=== PATIENT | male | born 1945 | race Caucasian/White ===

== ENCOUNTER 2019-01-13 01:18 | Emergency (ER) | payer MEDICARE, BC, SELFPAY ==
[2019-01-13 01:26] VITALS: BP 129/80; PULSE 82; RESP 26; TEMP 36.5; O2SAT 97
--- NOTE | 2019-01-13 01:35 | DI.CT_ITS ---
SYMPTOM/DIAGNOSIS: HX OF KIDNEY STONES, FLANK PAIN. R/O STONE ABDOMINAL AND PELVIC CT: 01/13 CT examination of the abdomen and pelvis was performed without contrast administration. Images obtained through the lung bases are unremarkable. The visualized portions of the liver, spleen and pancreas appear normal. Gallbladder and bile ducts are CT normal. Abdominal aorta is of normal diameter. There is probable prior ventral hernia surgery. There is small fat containing umbilical hernia. No gross abdominal or pelvic adenopathy. Adrenals are unremarkable. There are very large bilateral renal cysts, largest on the right measuring up to about 9 cm in diameter and largest on the left measuring up to about 13 cm in diameter. There are small bilateral nonobstructing renal calculi. No hydronephrosis. No ureteral lithiasis. Urinary bladder contains multiple stones and is collapsed. No evidence of appendicitis or diverticulitis. No evidence of bowel obstruction. Note is made of nonspecific small lytic lesions in both iliac bones. The findings are nonspecific but a process such as multiple myeloma could not be excluded. Please correlate clinically. If clinically appropriate additional evaluation with pelvic MRI could be obtained to evaluate these lesions. CONCLUSION: 1. Very large bilateral renal cysts 2. Bilateral nonobstructing renal calculi 3. Urinary bladder calculi 4. Question fo lytic lesions of iliac bones bilaterally, pelvic MRI suggested to exclude multiple myeloma and clinical correlation is requested.
--- NOTE | 2019-01-13 01:47 | W.ED.GENAD ---
Discharge Plan Disposition Patient Disposition: HOME Condition: Good Discharge Details Chief Complaint: Urinary Clinical Impression: Acute urinary retention Primary Care Provider: [facility] Provider: Bartolome De La Rosa Home Meds and New Rx's Prescriptions: No Action tamsulosin 0.4 mg Capsule 4 mg PO DAILY RF: 0 Discharge Instructions Instructions: Urinary Retention in Men (ED) Additional Instructions: Your urinary retention has been resolved with the draining of your bladder. Do not miss any doses of your Flomax. Please follow-up promptly this week with your urologist at [facility]. If you notice any worsening of your symptoms, or any new symptoms such as vomiting, diarrhea, fever, chills, shortness of breath, chest pain, numbness, weakness, or fainting , please return immediately to the emergency department for reevaluation.As always, it was a pleasure participating in your medical care today. Medical Decision Making This is a pleasant 73-year-old male with a past medical history of bladder stones, kidney stones, and prostatic hypertrophy. He presents today for complaint of suprapubic pain, and inability to urinate since 9 PM. He states that he has had similar symptoms to this in the past when he has had both prostate issues and kidney stones. He denies any fever chills hematuria. Exam demonstrates suprapubic tenderness. No significant upper abdominal tenderness. Genital exam is otherwise benign with nontender testicles. Differential is highest for urinary retention secondary to prostatic hypertrophy versus stone. Bedside ultrasound does show notable retention. We will place a Connolly catheter, perform laboratory work-up, get a CT scan to evaluate for any potential stone etiology is the causative agent. 3 AM The patient had 1 L of urine noted in the bladder, straight cath was placed and the patient had complete release of the urine. Patient had complete resolution of his symptoms after this. Laboratory work-up demonstrates normal renal, normal hemoglobin. No white count. Urinalysis shows no evidence of urinary tract infection. CT scan per radiology shows no evidence of acute process however there is a notable renal cyst up to 13.6 cm. No obstructing calculus. No evidence of urinary obstruction otherwise. Patient continues to feel very well. Unfortunately right now [facility] is in a downtime and we are unable to access any of their CT images for comparison. He states he does know that he has a history of cysts in the past. At this time he is requesting discharge which I feel is reasonable. Respecting his wishes patient will be to discharged home with recommendation for prompt follow-up with his urologist at [facility]. We discussed red flags for which to return. I have extensively reviewed the treatment plan and discharge instructions with the patient and their family. I have addressed all patient concerns at this time. The patient and family was made aware of what symptoms to monitor for that would warrant a return to the emergency department. Discussed the plan with the patient and family, they demonstrate verbal understanding and agreement with our assessment and plan at this time. FINDINGS: Liver: Normal. No mass. Gallbladder and bile ducts: Normal. No calcified stones. No ductal dilation. Pancreas: Normal. No ductal dilation. Spleen: Normal. No splenomegaly. Adrenals: Normal. No mass. Kidneys and ureters: Renal cysts up to 13.6 cm. Nonobstructing renal calculi. No obstructing urinary calculus or hydronephrosis. Stomach and bowel: Colonic diverticula. Appendix: No evidence of appendicitis. Intraperitoneal space: Normal. No free air. No significant fluid collection. Vasculature: Normal. No abdominal aortic aneurysm. Lymph nodes: Normal. No enlarged lymph nodes. Bladder: Urinary calculi in dependent portion of the collapsed urinary bladder. Reproductive: Prostate hypertrophy. Bones/joints: No acute fracture. No dislocation. Soft tissues: Tiny fat-containing umbilical hernia. IMPRESSION: No acute finding. Thank you for allowing us to participate in the care of your patient. Dictated and Authenticated by: Be Roche MD HPI General Date/Time Provider Initiated Documentation: 01/13/19 01:34. HPI Narrative: This is a 73-year-old male with a past medical history of prostatic hypertrophy, bladder stones and kidney stones who presents today with difficulty urinating, suprapubic pain, and mild abdominal pain. He states that he has had similar symptoms in the past that he has had both prostate issues as well as kidney stone issues. He denies any numbness tingling weakness nausea vomiting or diarrhea. He denies any other complaints at this time. He has not been able to urinate since 9 PM this evening. He does see urology at [facility] on a regular basis. No other modifying factors. Related Data Home Medications Medication Instructions Recorded Confirmed tamsulosin 4 mg PO DAILY 01/13/19 01/13/19 Allergies Allergy/AdvReac Type Severity Reaction Status Date / Time No Known Allergies Allergy Unverified 01/13/19 01:35 General Stated Complaint: Urinary WARREN: 3 Review of Systems Review of Systems All systems reviewed & are unremarkable except as noted in HPI and below [facility] Medical History (Updated 01/13/19 @ 01:35 by Salima Rodriguez) Bladder stones (Acute) Social History Smoking/Tobacco Use Status: Never Alcohol Intake: current Alcohol Intake frequency: 0-2 drinks per day Drug use: Never Substance use type: does not use Do you feel safe at home: Yes Do you feel safe in your relationship?: Yes Exam Narrative Exam Narrative: 1.Const: Well-nourished, Well-developed, appearing stated age 2.Eyes: PERRL, no conjunctival injection, and symmetrical lids. 3.ENT: Atraumatic external nose and ears. Moist MM. Neck: Symmetric, trachea midline, No thyromegaly. 4.CVS: +S1/S2, No murmurs or gallops. Peripheral pulses 2+ and equal in all extremities. Brisk capillary refill in all extremities. 5.RESP: Unlabored respiratory effort. Clear to auscultation bilaterally. No wheezes rales or rhonchi 6.GI: Soft, Nontender/Nondistended, No hepatosplenomegaly. No guarding or rebound. Notable distention of the suprapubic area. Mild tenderness in this area. Genital exam demonstrates nontender testicles, nontender penis. No urethral discharge. Normal cremasteric reflex bilaterally. 7.MSK: Normocephalic/Atraumatic, Extremities w/o deformity or ttp No cyanosis or clubbing, Normal movement of all extremities 8.Skin: Warm, Dry. No rashes or lesions. 9.Neuro: hearing therapy director II-XII grossly intact. Sensation grossly intact, no focal neurologic deficits. 10.Psych: (AAO) x3. Appropriate mood and affect Course Vital Signs Temperature 36.5 C 01/13/19 01:26 Pulse 82 01/13/19 01:26 Respiratory Rate 26 H 01/13/19 01:26 Blood Pressure 129/80 01/13/19 01:26 Pulse Oximetry 97 01/13/19 01:26 Temperature 36.5 C 01/13/19 01:26 Temperature Source Skin 01/13/19 01:26 Pulse 82 01/13/19 01:26 Respiratory Rate 26 H 01/13/19 01:26 Respiratory Effort Non-Labored 01/13/19 01:33 Blood Pressure 129/80 01/13/19 01:26 Pulse Oximetry 97 01/13/19 01:26 Oxygen Delivery Method Room Air 01/13/19 01:26 Oxygen Flow Rate 0 01/13/19 01:26 Pain Level 10 01/13/19 01:26
[2019-01-13] MEDS: diazePAM 5 MG TAB PO (01:50)
[2019-01-13 02:04] LABS: Abs Immature Grans 0.01 k/cumm (0.0-0.09); Absolute Eosinophil Count 0.08 k/cumm (0.0-0.7); Absolute Monocyte Count 0.46 k/cumm (0.11-0.7); Absolute Neutrophil Count 3.68 k/cumm (1.2-6.7); Eosinophils % 1.4; HCT 47.4 % (40.0-50.0); HGB 15.7 g/dL (13.5-17.5); Immature Grans % 0.2; Lymphocytes % 24.9; Mean Corp. HGB Concentration 33.1 g/dL (32.0-36.0); Mean Corpuscular Hemoglobin 29.5 pg (27.0-33.0); Mean Corpuscular Volume 88.9 fL (80-95); Mean Platelet Volume 9.4 fL (8.0-11.0); Monocytes % 8.2; Neutrophils % 65.3; Platelet Count 172 x1000/uL (130-400); RBC 5.33 m/cumm (4.50-6.00); RBC Distribution Width 12.8 % (11.8-14.1); White Blood Cell Count 5.63 k/cumm (4.4-10.8)
[2019-01-13 02:25] LABS: Bilirubin Negative (Negative); Blood Trace-intact (Negative); Clarity Clear (Clear); Glucose Negative (Negative); Ketones Negative (Negative); Leukocyte Esterase Negative (Negative); Nitrite Negative (Negative); Urobilinogen 0.2 EU/dL (Up TO 0.2); pH 5.5 (5-8)
[2019-01-13 02:25] LABS: ALT 12 U/L (12-78); AST 11 U/L (15-37); Albumin 3.7 g/dL (3.4-5.0); Alkaline Phosphatase 85 U/L (46-116); Anion Gap 9.6 mmol/L (3-11); BUN 27 mg/dL (7-18); Bilirubin, Total 0.4 mg/dL (0.2-1.0); CO2 26.4 mmol/L (21.0-32.0); CREATININE 0.91 mg/dL (0.70-1.30); Chloride 103 mmol/L (98-107); Glucose 99 mg/dL (70-100); Potassium 4.2 mmol/L (3.5-5.1); Sodium 139 mmol/L (136-145); Total Protein 7.5 g/dL (6.4-8.2)
[2019-01-13 02:29] LABS: Bacteria Negative HPF (Negative); C & S Indicated? No; Casts Negative LPF (Negative); Crystals Negative HPF (Negative); Epithelial Cells Negative HPF (Negative); Mucus Negative (Negative); RBC 0-2 (0-2); WBC 0-2 HPF (0-5)
--- NOTE | 2019-01-13 03:02 | DI.VRAD_ITS ---
EXAM: CT Abdomen and Pelvis Without Contrast EXAM DATE/TIME: 01/13/2019 1:36 AM CLINICAL HISTORY: 73 years old, male; Abdominal pain; Other: Supra-pubic; Patient HX: HX of kidney stones; Additional info: R/O stone TECHNIQUE: Imaging protocol: Axial computed tomography images of the abdomen and pelvis without contrast. Coronal and sagittal reformatted images were created and reviewed. COMPARISON: No relevant prior studies available. FINDINGS: Liver: Normal. No mass. Gallbladder and bile ducts: Normal. No calcified stones. No ductal dilation. Pancreas: Normal. No ductal dilation. Spleen: Normal. No splenomegaly. Adrenals: Normal. No mass. Kidneys and ureters: Renal cysts up to 13.6 cm. Nonobstructing renal calculi. No obstructing urinary calculus or hydronephrosis. Stomach and bowel: Colonic diverticula. Appendix: No evidence of appendicitis. Intraperitoneal space: Normal. No free air. No significant fluid collection. Vasculature: Normal. No abdominal aortic aneurysm. Lymph nodes: Normal. No enlarged lymph nodes. Bladder: Urinary calculi in dependent portion of the collapsed urinary bladder. Reproductive: Prostate hypertrophy. Bones/joints: No acute fracture. No dislocation. Soft tissues: Tiny fat-containing umbilical hernia. IMPRESSION: No acute finding. Dictated and Authenticated by: Be Roche MD. Ordering:ARMINDA Mancuso MD
[2019-01-13 03:10] VITALS: BP 124/72; PULSE 67; RESP 16; O2SAT 97
== END 2019-01-13 03:14 | disposition home or self-care (01) ==
PROVIDERS: Emergency Provider Student in an Organized Health Care Education/Training Program
DX: N41.9 Inflammatory disease of prostate, unspecified (principal); R33.8 Other retention of urine; N28.1 Cyst of kidney, acquired; Z87.442 Personal history of urinary calculi
CPT/HCPCS: 36415; 51701; 80053; 99284; 74176; 81003; 81015; 85025; 99285

== ENCOUNTER 2019-01-14 07:32 | Emergency (ER) | payer MEDICARE, BC, SELFPAY ==
[2019-01-14] VITALS (20 sets, daily range): BP systolic 106–135; BP diastolic 59–80; PULSE 65–80; RESP 15; TEMP 36.7; O2SAT 97–100
--- NOTE | 2019-01-14 07:53 | ED.GENADUL_ITS ---
Discharge Plan Disposition Patient Disposition: HOME Condition: Stable Discharge Details Chief Complaint: Urinary Clinical Impression: Urinary retention Primary Care Provider: [facility]Local ED Provider: Nickie Tony Home Meds and New Rx's Prescriptions: Continued tamsulosin 0.4 mg Capsule 8 mg PO DAILY RF: 0 No Action bisacodyl 5 mg Tablet 10 mg PO ONCE RF: 0 naproxen sodium [Aleve] 220 mg Capsule 440 mg PO BID PRNRF: 0 diazepam [Valium] 2 mg tablet 2 mg PO ONCE PRN (Reason: spasms) Qty: 10 RF: 0 Discharge Instructions Instructions: Urinary Retention in Men (ED), Connolly Catheter Placement and Care (ED), Urinary Leg Bag (GEN) Additional Instructions: Please return to the emergency department if you develop any new or worsening symptoms or if you become otherwise concerned. It is extremely important that you call as soon as possible to make an appointment to be seen by both your urologist and also by your primary care doctor. Discharge Data Discharge Date/Time-TO BE ENTERED AT DEPARTURE: 01/14/19 11:10 Medical Decision Making Braydon Anders is a 73-year-old man with history of BPH who presented to the emergency department with urinary retention after being seen here 2 days ago for same, straight catheter placed at that time with greater than 1000 cc urine output. Patient is very well-appearing and nontoxic on exam. Mild suprapubic tenderness without peritoneal signs. CT performed at prior visit shows enlarged prostate, renal cysts. Renal cysts present on prior CT. Exam/history is not consistent with acute emergent intraperitoneal process, acute aortic pathology, acute emergent neurologic etiology. Concern for likely urinary retention secondary to enlarged prostate, possible UTI. Plan for Connolly catheter placement, if urine output greater than 500 cc will send patient home with indwelling Connolly, urology consult, UA. Patient with significant anxiety secondary to Connolly placement, received Valium at prior visit. Will give p.o. Valium 5 mg. Greater than 700 cc of urine output with Connolly placement. Plan to send patient home with Connolly in place. Patient's urologist is Dr. Sanchez at [facility]. I called transfer center at [facility] to discuss patient with urology on-call. UA shows no UTI. Discussed Pt with Dr. Tellez of urology, who recommended continue indwelling Connolly, continue Flomax, will schedule patient for voiding trial as outpatient. No further interventions recommended at this time. I had a lengthy discussion with the patient regarding return to emergency department precautions, home car e, importance of outpatient follow-up with PCP and also with urology. Patient verbalized understanding of the plan was amenable. All questions were answered. Patient was discharged home with clear plan for outpatient follow-up. Medical Records Medical records reviewed: Yes I reviewed the patient's medical records. Lab Data Lab results reviewed: Yes I reviewed the patient's lab results. HPI General Mode of arrival: ambulatory . Date/Time Provider Initiated Documentation: 01/14/19 07:53 . Limitations to Documentation: no limitations . Information obtained by: patient, RN notes reviewed and old records reviewed . HPI Narrative: Braydon Anders is a 73 y/o man with history of BPH presenting to the emergency department with urinary retention. Patient reports that he was seen here 2 days ago for same. At that time, patient had straight catheter placed, approximately 1000 cc of urine was put out immediately. Patient was discharged home at that time without catheter in place. Patient reports that since discharge to the emergency department he has had gradually worsening difficulty with urination, and states that he has now not urinated since yesterday. He reports mild lower abdominal pain consistent with symptoms he presented with at his prior visit. He denies dysuria. He denies any other pain, fevers, vomiting, diarrhea, constipation, shortness of breath, cough, numbness, weakness. Patient reports he has been eating and drinking as usual. No recent illness. Has not had to have indwelling Connolly catheter for this in the past. Patient has been taking Flomax. Related Data Home Medications Medication Instructions Recorded Confirmed tamsulosin 8 mg PO DAILY 01/13/19 01/16/19 bisacodyl 10 mg PO ONCE 01/16/19 01/16/19 diazepam [Valium] 2 mg PO ONCE PRN #10 tab 01/16/19 naproxen sodium [Aleve] 440 mg PO BID PRN 01/16/19 01/16/19 Previous Rx's Medication Instructions Recorded diazepam [Valium] 2 mg PO ONCE PRN #10 tab 01/16/19 Allergies Allergy/AdvReac Type Severity Reaction Status Date / Time No Known Allergies Allergy Unverified 01/16/19 15:32 General Stated Complaint: Urinary WARREN: 3 Review of Systems Review of Systems Constitutional: denies fevers Eyes: denies eye pain ENT: denies facial pain, dental pain, sore throat Cardiovascular: denies chest pain Respiratory: denies SOB, cough GI: denies abdominal pain, vomiting, diarrhea : denies flank pain, dysuria, urinary incontinence, reports difficulty with urination MSK: denies back pain, neck pain, arthralgias, myalgias Skin: denies rash Neuro: denies headaches, numbness, weakness [facility] Medical History Bladder stones (Acute) Social History Smoking/Tobacco Use Status: Never Alcohol Intake: current Alcohol Intake frequency: 0-2 drinks per day Drug use: Never Substance use type: does not use Do you feel safe at home: Yes Do you feel safe in your relationship?: Yes Exam Narrative Exam Narrative: Constitutional: well and [id number], pleasant, conversing normally HENT: head atraumatic/normocephalic/normal inspection, mucous membranes moist Eyes: conjunctiva normal, sclera normal, pupils 3mm b/l Neck: no stridor, normal ROM, trachea midline Resp: normal work of breathing, LCTAB Cardio: normal rate, normal rhythm, no murmur appreciated GI: abdomen soft, mild suprapubic tenderness, no rebound, no guarding, no McBurney's point tenderness to palpation, non-distended Skin: warm, dry, normal color, no rash Neuro: alert, not altered, grossly non-focal, normal tone Ext: no edema Psych: normal mood, normal affect, normal behavior Course Vital Signs Temperature 36.7 C 01/14/19 07:37 Pulse 80 01/14/19 07:37 Respiratory Rate 15 01/14/19 07:37 Blood Pressure 135/77 01/14/19 07:37 Pulse Oximetry 99 01/14/19 07:37 Temperature 36.7 C 01/14/19 07:37 Temperature Source Temporal Artery Scan 01/14/19 07:37 Pulse 80 01/14/19 07:37 Respiratory Rate 15 01/14/19 07:37 Respiratory Effort Non-Labored 01/14/19 07:41 Blood Pressure 135/77 01/14/19 07:37 Blood Pressure Position Standing 01/14/19 07:37 Pulse Oximetry 99 01/14/19 07:37 Oxygen Delivery Method Room Air 01/14/19 07:37 Oxygen Flow Rate 0 01/14/19 07:37 Pain Level 9 01/14/19 07:37
[2019-01-14] MEDS: diazePAM 5 MG TAB PO (08:00)
--- NOTE | 2019-01-14 08:56 | NUR.NOTE ---
Nursing Note: Additional RN at bedside to attempt 3rd IV
[2019-01-14 09:03] LABS: Bilirubin Negative (Negative); Blood Trace-intact (Negative); Clarity Clear (Clear); Glucose Negative (Negative); Ketones Negative (Negative); Leukocyte Esterase Negative (Negative); Nitrite Negative (Negative); Specific Gravity 1.015 (1.005-1.025); Urobilinogen 0.2 EU/dL (Up TO 0.2); pH 5.5 (5-8)
[2019-01-14 09:15] LABS: Bacteria Few HPF (Negative); Crystals Negative HPF (Negative); Epithelial Cells Few HPF (Negative); Other Cells Negative (Negative); WBC Negative HPF (0-5)
[2019-01-14 09:16] LABS: C & S Indicated? No; Casts Negative LPF (Negative); Mucus Trace (Negative)
[2019-01-14] MEDS: Ibuprofen 400 MG TAB (10:05)
--- NOTE | 2019-01-14 16:23 | NUR.NOTE ---
Addendum entered by Alba Anthony 01/14/19 16:25: Original Note: Nursing Note: [place] [facility] [place] [facility] ED visit notes, labs and diagnostic imaging from both visits. Alba Anthony.
== END 2019-01-14 11:10 | disposition home or self-care (01) ==
PROVIDERS: Emergency Provider Student in an Organized Health Care Education/Training Program
DX: N40.1 Benign prostatic hyperplasia with lower urinary tract symptoms (principal); R33.8 Other retention of urine; F41.9 Anxiety disorder, unspecified; R10.30 Lower abdominal pain, unspecified; N21.0 Calculus in bladder
CPT/HCPCS: 51702; 99283; 81003; 81015

== ENCOUNTER 2019-01-16 15:21 | Emergency (ER) | payer MEDICARE, BC, SELFPAY ==
[2019-01-16 15:26] VITALS: BP 123/66; PULSE 73; RESP 16; TEMP 36.7; O2SAT 98
[2019-01-16 19:13] LABS: Bilirubin Small (Negative); Blood Large (Negative); Clarity Cloudy (Clear); Glucose Negative (Negative); Ketones Trace mg/dL (Negative); Leukocyte Esterase Trace (Negative); Nitrite Negative (Negative); Specific Gravity 1.025 (1.005-1.025); Urobilinogen 0.2 EU/dL (Up TO 0.2); pH 5.5 (5-8)
[2019-01-16 19:29] LABS: Bacteria Few HPF (Negative); Casts Negative LPF (Negative); Crystals Negative HPF (Negative); Epithelial Cells Negative HPF (Negative); Mucus Negative (Negative); Other Cells Negative (Negative); RBC >50 (0-2); WBC 0-2 HPF (0-5)
[2019-01-16 19:30] LABS: C & S Indicated? No
[2019-01-16] MEDS: diazePAM 5 MG TAB PO (19:42)
[2019-01-16 20:59] VITALS: BP 114/72; PULSE 70; RESP 20; TEMP 36.7; O2SAT 97
--- NOTE | 2019-01-16 21:17 | ED.GENADUL_ITS ---
Discharge Plan Disposition Patient Disposition: HOME Discharge Details Chief Complaint: Urinary Clinical Impression: Complication, blocked Connolly catheter Primary Care Provider: Re,Local ED Provider: Darius Tony Home Meds and New Rx's Prescriptions: New diazepam [Valium] 2 mg tablet 2 mg PO ONCE PRN (Reason: spasms) Qty: 10 RF: 0 Continued tamsulosin 0.4 mg Capsule 8 mg PO DAILY RF: 0 bisacodyl 5 mg Tablet 10 mg PO ONCE RF: 0 naproxen sodium [Aleve] 220 mg Capsule 440 mg PO BID PRNRF: 0 Discharge Instructions Instructions: Connolly Catheter Placement and Care (ED) Additional Instructions: Please follow-up with your urologist. Discuss additional medications for bladder spasm. Please contact your primary care physician to arrange follow-up. Be sure to discuss findings on your CT scan: CONCLUSION: 1. Very large bilateral renal cysts 2. Bilateral nonobstructing renal calculi 3. Urinary bladder calculi 4. Question fo lytic lesions of iliac bones bilaterally, pelvic MRI suggested to exclude multiple myeloma and clinical correlation is requested. Additional diagnostic testing including MRI of the pelvis is indicated. Discussed this with your doctor. Return to the ER for any worsening or new concerning symptoms. Discharge Data Discharge Date/Time-TO BE ENTERED AT DEPARTURE: 01/16/19 21:36 Medical Decision Making 73-year-old male with history of renal stones and prostatic hypertrophy, returns today after having coude catheter placed on 01/14/2019 with urinary retention. Blood tinged urine with no clots noted. Catheter was initially flushed by nursing and then had balloon readjusted. Patient initially passed urine. While he was awaiting urinalysis there was a period where urine was not draining as well. Initial plan was for replacement with larger catheter. Patient was given Valium in preparation for this catheter change as requested. After receiving Valium, patient was noted to relax and again start to produce urine. Consider intermittent bladder spasm. Nursing also concerned that patient using a leg bag and that catheter may be kinking. We discussed utilizing gravity to encourage continued flow. On reexamination, urine clear and flowing easily. Patient does note some stinging discomfort when he urinates. Considered infectious process. Urinalysis reviewed and does have greater than 50 RBCs. 0- 2 WBCs. Urinalysis not consistent with infection. CT imaging over read from radiology noted findings not identified on initial interpretation by [facility]: 1. Very large bilateral renal cysts 2. Bilateral nonobstructing renal calculi 3. Urinary bladder calculi 4. Question fo lytic lesions of iliac bones bilaterally, pelvic MRI suggested to exclude multiple myeloma and clinical correlation is requested. These findings were discussed with the patient and I recommended that he follow- up with PCP to arrange followup outpatient MRI. Plan is to have the patient follow-up with his urologist and PCP. I encouraged him to call tomorrow to arrange follow-up. Disposition decision was made weighing the risks and benefits of hospitalization versus outpatient treatment, the risk for further decompensation, and the patient's wishes. The patient was stable and requested discharge. Prior to discharge, my usual and customary return precautions were reviewed with patient and his - this included follow-up instructions and reason to return to the emergency department if condition worsens, does not improve as expected, or other new concerns arise. Medical Records Medical records reviewed: Yes I reviewed the patient's medical records. Lab Data Lab results reviewed: Yes I reviewed the patient's lab results. 01/16/19 17:53 Urine - Voided Urine Culture - Pending Laboratory Tests Range/Units 01/16/19 01/16/19 17:53 19:03 Urine Color Cancelled Brown Urine Clarity Cancelled Cloudy Urine pH Cancelled 5.5 Ur Specific [place] Cancelled 1.025 Urine Protein Cancelled 100 H Urine Ketones Cancelled Trace H Urine Blood Cancelled Large H Urine Nitrite Cancelled Negative Urine Bilirubin Cancelled Small H Urine Urobilinogen Cancelled 0.2 Ur Leukocyte Esterase Cancelled Trace H Urine RBC (0-2) >50 H Urine WBC (0-5) HPF 0-2 Ur Epithelial Cells (Negative) HPF Negative Urine Crystals (Negative) HPF Negative Urine Bacteria (Negative) HPF Few Urine Casts (Negative) LPF Negative Urine Mucus (Negative) Negative Urine Other (Negative) Negative Ur Culture Indicated? No Urine Glucose Cancelled Negative HPI General Mode of arrival: ambulatory . Date/Time Provider Initiated Documentation: 01/16/19 15:38 . Limitations to Documentation: no limitations . Information obtained by: patient . HPI Narrative: 73-year-old male with history of prostatic hypertrophy, seen here on 01/13/2019 for urinary retention, had straight cath performed and then returned again on 01/14/2019 for recurrent retention and had Connolly catheter placed, returns today with decreased urination, leaking urine around catheter from meatus. Patient notes suprapubic discomfort described as fullness. Symptoms are moderate without modifiers. Patient has not passed any clots in his urine. Patient does also notes some stinging discomfort with urination. He denies fever. Related Data Home Medications Medication Instructions Recorded Confirmed tamsulosin 8 mg PO DAILY 01/13/19 01/16/19 bisacodyl 10 mg PO ONCE 01/16/19 01/16/19 diazepam [Valium] 2 mg PO ONCE PRN #10 tab 01/16/19 naproxen sodium [Aleve] 440 mg PO BID PRN 01/16/19 01/16/19 Previous Rx's Medication Instructions Recorded diazepam [Valium] 2 mg PO ONCE PRN #10 tab 01/16/19 Allergies Allergy/AdvReac Type Severity Reaction Status Date / Time No Known Allergies Allergy Unverified 01/16/19 15:32 General Stated Complaint: Urinary WARREN: 3 Patient has not passed any blood clots in his urine. Review of Systems Review of Systems All systems reviewed & are unremarkable except as noted in HPI and below Constitutional Denies fever(s) Genitourinary Reports as per HPI [facility] Medical History Bladder stones (Acute) Social History Smoking/Tobacco Use Status: Never Alcohol Intake: current Alcohol Intake frequency: 0-2 drinks per day Drug use: Never Substance use type: does not use Do you feel safe at home: Yes Do you feel safe in your relationship?: Yes Exam Const General: cooperative and no acute distress HENMT Mouth: moist mucous membranes Eyes Conjunctivae: normal conjunctivae Sclera: normal sclerae Resp Auscultation: clear to auscultation bilaterally, no rales, no rhonchi and no wh eezes Cardio Jugular venous pressure: no JVD Rate: regular rate and not tachycardic Rhythm: regular rhythm GI Palpation: soft, not firm, no guarding, no masses, not rigid and tender suprapubicly (Fullness) Skin General skin exam: no rashes or lesions noted Neuro General: alert, awake and tone normal Extrem General: no edema Psych Appearance: grossly normal Mental Status: mental status grossly normal Course Vital Signs Temperature 36.7 C 01/16/19 15:26 Pulse 73 01/16/19 15:26 Respiratory Rate 16 01/16/19 15:26 Blood Pressure 123/66 01/16/19 15:26 Pulse Oximetry 98 01/16/19 15:26 Temperature 36.7 C 01/16/19 20:59 Temperature Source Skin 01/16/19 20:59 Pulse 70 01/16/19 20:59 Respiratory Rate 20 01/16/19 20:59 Respiratory Effort 01/16/19 15:32 Blood Pressure 114/72 01/16/19 20:59 Blood Pressure Position Sitting 01/16/19 15:26 Pulse Oximetry 97 01/16/19 20:59 Oxygen Delivery Method Room Air 01/16/19 20:59 Oxygen Flow Rate 0 01/16/19 20:59 Pain Level 0 01/16/19 16:16 Comment 01/16/19 15:26 Lab/Test Results Lab/Test Results: 01/16/19 17:53 Urine - Voided Urine Culture - Pending Laboratory Tests Range/Units 01/16/19 01/16/19 17:53 19:03 Urine Color Cancelled Brown Urine Clarity Cancelled Cloudy Urine pH Cancelled 5.5 Ur Specific [place] Cancelled 1.025 Urine Protein Cancelled 100 H Urine Ketones Cancelled Trace H Urine Blood Cancelled Large H Urine Nitrite Cancelled Negative Urine Bilirubin Cancelled Small H Urine Urobilinogen Cancelled 0.2 Ur Leukocyte Esterase Cancelled Trace H Urine RBC (0-2) >50 H Urine WBC (0-5) HPF 0-2 Ur Epithelial Cells (Negative) HPF Negative Urine Crystals (Negative) HPF Negative Urine Bacteria (Negative) HPF Few Urine Casts (Negative) LPF Negative Urine Mucus (Negative) Negative Urine Other (Negative) Negative Ur Culture Indicated? No Urine Glucose Cancelled Negative
--- NOTE | 2019-01-17 15:22 | CMPROGNOTE_ITS ---
Care Management Progress Note CM rec'd CM consult request from Erika in Radiology due to process of PCP notification; with no local PCP listed in Braydon's chart. CM called Braydon who reported his PCP is Chela Perez at [facility]. CM notified Erika in Radiology for follow up information. BRYCE discussed with Dr. Tony who reported findings were discussed with Braydon during ER visit and that Braydon already had follow up appointment scheduled for Monday. Urologist: Cristal Sanchez MD-[facility] P#[phone], F#[phone]: CM faxed ER visit note to Dr. Sanchez.
== END 2019-01-16 21:36 | disposition home or self-care (01) ==
PROVIDERS: Emergency Provider Student in an Organized Health Care Education/Training Program
DX: T83.091A Other mechanical complication of indwelling urethral catheter, initial encounter (principal); N40.1 Benign prostatic hyperplasia with lower urinary tract symptoms; R33.8 Other retention of urine; N28.1 Cyst of kidney, acquired; T83.031A Leakage of indwelling urethral catheter, initial encounter; R30.0 Dysuria; N21.0 Calculus in bladder; Z87.442 Personal history of urinary calculi
CPT/HCPCS: 99283; 81003; 81015; 87086

== ENCOUNTER 2019-01-25 09:05 | Emergency (ER) | payer MEDICARE, BC, SELFPAY ==
[2019-01-25 09:13] VITALS: BP 130/92; PULSE 82; RESP 15; TEMP 36.7; O2SAT 97
[2019-01-25 09:19] LABS: Bilirubin Negative (Negative); Blood Small (Negative); Glucose Negative (Negative); Ketones Negative (Negative); Leukocyte Esterase Moderate (Negative); Nitrite Positive (Negative); Specific Gravity 1.015 (1.005-1.025); Urobilinogen 0.2 EU/dL (Up TO 0.2)
[2019-01-25 09:20] LABS: Clarity Sl Cloudy (Clear)
--- NOTE | 2019-01-25 09:23 | ED.GENADUL_ITS ---
Discharge Plan Disposition Patient Disposition: HOME Condition: Good Discharge Details Chief Complaint: Urinary Clinical Impression: Acute UTI Primary Care Provider: ReLocal ED Provider: Bartolome De La Rosa Home Meds and New Rx's Prescriptions: New cephalexin [Keflex] 500 mg capsule 500 mg PO QID 7 Days Qty: 28 RF: 0 No Action tamsulosin 0.4 mg Capsule 8 mg PO DAILY RF: 0 naproxen sodium [Aleve] 220 mg Capsule 440 mg PO BID PRNRF: 0 bisacodyl [Dulcolax (bisacodyl)] 5 mg Tablet,Delayed Release (Dr/Ec) 5 mg PO PRN PRNRF: 0 Discharge Instructions Instructions: Urinary Tract Infection in Men (ED) Additional Instructions: You have a urinary tract infection. Please take the antibiotic Keflex as directed. If your urine cultures returned showing resistance to this antibiotic he will be contacted in your medication will be switched. Please continue with your follow-up with your primary care provider on your outpatient basis for evaluation of the lytic lesions noted on your last visit. If you notice any worsening of your symptoms, or any new symptoms such as vomiting, diarrhea, fever, chills, shortness of breath, chest pain, numbness, weakness, or fainting , please return immediately to the emergency department for reevaluation. Please follow up with your primary care provider as soon as possible for reassessment and reevaluation. As always, it was a pleasure participating in your medical care today. Medical Decision Making This is a pleasant 73-year-old male with a past medical history of bladder stones, notable renal cyst, prostatic hypertrophy, kidney stones, pre vious urinary retention. He recently had a Connolly catheter in place that was placed on 01/16, and then subsequently removed 5 days ago. He has been doing well since then however he has noticed some mild increased urinary frequency and burning over the last 12 hours. He denies any red flags of fever, chills, flank pain or hematuria. Urinalysis demonstrates evidence of urinary tract infection. Signs and symptoms are clinically consistent with UTI and clinically inconsistent with pyelonephritis at this time. Patient's vital signs remained stable. We did discuss Levaquin for better gram-negative coverage versus Keflex, however at this time the patient is an avid biker and has some significant bike rides coming up. Weighing the risks and benefits of these medications he would like to hold off on floor quinolones. We will treat with Keflex 504 times daily. He will be contacted if his urine shows any signs of resistance. In addition to this we did discuss the lesions noted on his last imaging study, the patient does assure us that he is following up on an outpatient basis. I have extensively reviewed the treatment plan and discharge instructions with the patient. I have addressed all patient concerns at this time. The patient was made aware of what symptoms to monitor for that would warrant a return to the emergency department. Discussed the plan with the patient, they demonstrate verbal understanding and agreement with our assessment and plan at this time. HPI General Date/Time Provider Initiated Documentation: 01/25/19 09:07 . HPI Narrative: This is a pleasant 73-year-old male with a past medical history of bladder stones, kidney stones, notable renal cyst, potential lytic lesions in the pelvis, and prostatic hypertrophy. He was recently seen and assessed here for retention of urine, given a Connolly catheter on 01/16, which he dealt with very well and eventually saw urology at [facility] and had subsequent removal of the catheter 5 days ago. He has been doing very well since then, he has been urinating well without any difficulty. Over the last 12 hours so he did notice some burning with his urine as well as increased urinary frequency. He denies any fever, chills, or flank pain. He has no other complaints at this time. No other modifying factors. No hematuria. No recent antibiotics. Related Data Home Medications Medication Instructions Recorded Confirmed tamsulosin 8 mg PO DAILY 01/13/19 01/25/19 naproxen sodium [Aleve] 440 mg PO BID PRN 01/16/19 01/25/19 bisacodyl [Dulcolax (bisacodyl)] 5 mg PO PRN PRN 01/25/19 01/25/19 cephalexin [Keflex] 500 mg PO QID 7 Days #28 cap 01/25/19 Previous Rx's Medication Instructions Recorded cephalexin [Keflex] 500 mg PO QID 7 Days #28 cap 01/25/19 Allergies Allergy/AdvReac Type Severity Reaction Status Date / Time No Known Allergies Allergy Unverified 01/25/19 09:18 General Stated Complaint: Urinary WARREN: 4 Review of Systems Review of Systems All systems reviewed & are unremarkable except as noted in HPI and below PFSH Social History Smoking/Tobacco Use Status: Never Alcohol Intake: current Alcohol Intake frequency: 0-2 drinks per day Drug use: Never Substance use type: does not use Do you feel safe at home: Yes Do you feel safe in your relationship?: Yes Exam Narrative Exam Narrative: 1.Const: Well-nourished, Well-developed, appearing stated age 2.Eyes: PERRL, no conjunctival injection, and symmetrical lids. 3.ENT: Atraumatic external nose and ears. Moist MM. Neck: Symmetric, trachea midline, No thyromegaly. 4.CVS: +S1/S2, No murmurs or gallops. Peripheral pulses 2+ and equal in all extremities. Brisk capillary refill in all extremities. 5.RESP: Unlabored respiratory effort. Clear to auscultation bilaterally. No wheezes rales or rhonchi 6.GI: Soft, Nontender/Nondistended, No hepatosplenomegaly. No guarding or rebound. No flank or CVA tenderness. Genital exam demonstrates nontender testicles, normal male genitalia, normal cremasteric reflex bilaterally. 7.MSK: Normocephalic/Atraumatic, Extremities w/o deformity or ttp No cyanosis or clubbing, Normal movement of all extremities 8.Skin: Warm, Dry. No rashes or lesions. 9.Neuro: cattle driver II-XII grossly intact. Sensation grossly intact, no focal neurologic deficits. 10.Psych: (AAO) x3. Appropriate mood and affect Course Vital Signs Temperature 36.7 C 01/25/19 09:13 Pulse 82 01/25/19 09:13 Respiratory Rate 15 01/25/19 09:13 Blood Pressure 130/92 H 01/25/19 09:13 Pulse Oximetry 97 01/25/19 09:13 Temperature 36.7 C 01/25/19 09:13 Temperature Source Temporal Artery Scan 01/25/19 09:13 Pulse 82 01/25/19 09:13 Respiratory Rate 15 01/25/19 09:13 Respiratory Effort Non-Labored 01/25/19 09:18 Blood Pressure 130/92 H 01/25/19 09:13 Blood Pressure Position Sitting 01/25/19 09:13 Pulse Oximetry 97 01/25/19 09:13 Oxygen Delivery Method Room Air 01/25/19 09:13 Oxygen Flow Rate 0 01/25/19 09:13 Pain Level 6 01/25/19 09:13 Lab/Test Results Lab/Test Results: Laboratory Tests Range/Units 01/25/19 09:10 Urine Color (Yellow) Yellow Urine Clarity (Clear) Sl cloudy Urine pH (5-8) 7.0 Ur Specific [place] (1.005-1.025) 1.015 Urine Protein (Negative) mg/dL Negative Urine Ketones (Negative) mg/dL Negative Urine Blood (Negative) Small H Urine Nitrite (Negative) Positive H Urine Bilirubin (Negative) Negative Urine Urobilinogen (Up TO 0.2) EU/dL 0.2 Ur Leukocyte Esterase (Negative) Moderate H Urine Glucose (Negative) mg/dL Negative
[2019-01-25 09:28] VITALS: BP 130/92; PULSE 82; RESP 15; TEMP 36.7; O2SAT 97
[2019-01-25 09:30] LABS: Bacteria Many HPF (Negative); C & S Indicated? Yes; Casts Negative LPF (Negative); Crystals Negative HPF (Negative); Epithelial Cells Rare HPF (Negative); Mucus Negative (Negative); WBC >50 HPF (0-5)
== END 2019-01-25 09:35 | disposition home or self-care (01) ==
PROVIDERS: Emergency Provider Student in an Organized Health Care Education/Training Program
DX: N39.0 Urinary tract infection, site not specified (principal); N40.1 Benign prostatic hyperplasia with lower urinary tract symptoms; R35.0 Frequency of micturition; Z87.442 Personal history of urinary calculi
CPT/HCPCS: 87077; 99283; 81003; 81015; 87086; 87186

== ENCOUNTER → 2023-01-12 09:47 | Outpatient (BNVA) | payer MEDICARE, OTHER, SELFPAY | PROVIDERS: PCP Family Medicine; Referring Provider Family Medicine; Visit Provider Surgery | DX: K59.00 Constipation, unspecified (principal) | CPT/HCPCS: 99213 ==

== ENCOUNTER 2023-05-10 11:06 | Emergency (ER) | payer MEDICARE, OTHER, SELFPAY ==
[2023-05-10 11:12] VITALS: BP 144/78; PULSE 74; RESP 18; TEMP 36.7
--- OUTSIDE RECORDS SUMMARY | 2023-05-10 11:33 | XMS_ITS | Continuity of Care Document ---
Author Name Unknown Organization [facility] Address [address] [place] [id number] Care Team Providers Care Marketing Officer Name Role Phone Ana Amanda Primary Care Physician Unavailab le Encounter [facility] Date(s): 09/25/19 - 09/25/19 [facility] [address] [id number] Encounter Diagnosis Cortical age-related cataract of both eyes(Discharge Diagnosis) - 09/25/19 Discharge Disposition: Home or Self Care Attending Physician: Niko Yeh MD Admitting Physician: Niko Yeh MD Allergies, Adverse Reactions, Alerts No Known Medication Allergies Assessment and Plan Future Appointments Functional Status 09/25/19 Recent Travel History No recent travel COVID- Screening None Medications niacinamide 0 Refill(s) Start Date: 05/06/19 Status: Ordered Red Yeast Rice 1,200 mg, Oral, Daily, 0 Refill(s) Start Date: 05/06/19 Status: Ordered Vitamin B12 0 Refill(s) Start Date: 05/06/19 Status: Ordered Vitamin C Daily, 0 Refill(s) Start Date: 05/06/19 Status: Ordered Vitamin D 1000 0 Refill(s) Start Date: 05/06/19 Status: Ordered Problem List Condition Effective Dates Status Health Status Inform ant BPH (benign prostatic hyperplasia)(Confirmed) 1 Active Cortical age-related catarac t of both eyes(Confirmed) Active H/O optic neuritis(Confirmed) 2 Active Choroidal nevus, 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
--- OUTSIDE RECORDS SUMMARY | 2023-05-10 11:33 | XMS_ITS | Continuity of Care Document ---
Author Name Unknown Organization [facility] Address [address] [place] [id number] Care Team Providers Care Core Inserter Name Role Phone Ana Amanda Primary Care Physician Unavailab le Encounter [facility] Date(s): 01/10/20 - 01/10/20 [facility] [address] [id number] Encounter Diagnosis Pseudophakia of left eye(Discharge Diagnosis) - 01/10/20 Discharge Disposition: Home Attending Physician: Niko Yeh MD Admitting Physician: Niko Yeh MD Allergies, Adverse Reactions, Alerts No Known Medication Allergies Functional Status 01/10/20 Recent Travel History No recent travel COVID-19 Screening None Medications acetaminophen 325 mg oral tablet 325 mg = 1 tab(s), Oral, q4hr, PRN PRN Pain, 0 Refill(s) Start Date: 12/05/19 Status: Ordered acetaminophen 325 mg oral tablet 325 mg = 1 tab(s), Oral, q4hr, PRN PRN Pain, 0 Refill(s) Start Date: 11/07/19 Status: Ordered Miscellaneous MAR Items Oral, Daily, Tumeric, 0 Refill(s) Start Date: 11/27/19 Status: Ordered niacinamide 0 Refill(s) Start Date: 05/06/19 Status: Ordered prednisoLONE acetate 1% ophthalmic suspension 1 drop(s), Eye-Left, [id number], 0 Refill(s), 02/05/20 Start Date: 12/05/19 Stop Date: 02/05/20 Status: Ordered Red Yeast Rice 1,200 mg, Oral, Daily, 0 Refill(s) Start Date: 05/06/19 Status: Ordered Tobradex 0.3%-0.1% ophthalmic ointment 0.5 in, OPTH, HS, PRN PRN Other (see comment), Instill in eye for FBS, 0 Refill(s) Start Date: 11/07/19 Status: Ordered Vitamin B12 0 Refill(s) Start Date: 05/06/19 Status: Ordered Vitamin C Daily, 0 Refill(s) Start Date: 05/06/19 Status: Ordered Vitamin D 1000 0 Refill(s) Start Date: 05/06/19 Status: Ordered Problem List Condition Effective Dates Status Health Status Inform ant BPH (benign prostatic hyperplasia)(Confirmed) 1 Active H/O optic neuritis(Confirmed) 2 Active Choroidal nevus, 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 Yeh 4PSPH OD 11/07/2019 - Dr. Yeh Procedures Procedure Date Related Diagnosis Body Site Status Phacoemulsification with IOL (Left) 1 12/05/19 Completed Phacoemulsification with IOL (Right) 2 11/07/19 Completed 1auto-populated from documented surgical case 2auto-populated from documented surgical case Social History Social History Type Response Smoking Status Former smoker, quit more than 30 days ago entered on: 05/06/19 Sex Medical Equipment Implanted Date:12/05/19Target Site:Unknown Description Quantity MRI Company Model INTRAOCULAR LENS IOL 1 KAMRYN Unkn own SHARONDA:No Information Assigning Authority: FDA Implanted Date:11/07/19Target Site:Unknown Description Quantity MRI Company Model INTRAOCULAR LENS IOL 1 KAMRYN Unkn own SHARONDA:No Information Assigning Authority: FDA
--- OUTSIDE RECORDS SUMMARY | 2023-05-10 11:33 | XMS_ITS | Continuity of Care Document ---
Author Name Unknown Organization [facility] Address [address] [place] [phone] Care Team Providers Care Manganese Breaker Name Role Phone Santinoforrest Amanda Primary Care Physician Unavailab le Encounter [facility] Date(s): 11/08/19 - 11/08/19 [facility] [address] [place], [place] [address] Encounter Diagnosis Pseudophakia of right eye(Discharge Diagnosis) - 11/08/19 Discharge Disposition: Home or Self Care Attending Physician: Niko Yeh MD Admitting Physician: Niko Yeh MD Allergies, Adverse Reactions, Alerts No Known Medication Allergies Assessment and Plan Future Appointments Functional Status 11/08/19 Recent Travel History No recent travel COVID-19 Screening None Medications acetaminophen 325 mg oral tablet 325 mg = 1 tab(s), Oral, q4hr, PRN PRN Pain, 0 Refill(s) Start Date: 11/07/19 Status: Ordered niacinamide 0 Refill(s) Start Date: 05/06/19 Status: Ordered prednisoLONE acetate 1% ophthalmic suspension 1 drop(s), Eye-Right, [id number], 0 Refill(s), 01/07/20 Start Date: 11/07/19 Stop Date: 01/07/20 Status: Ordered Red Yeast Rice 1,200 mg, Oral, Daily, 0 Refill(s) Start Date: 05/06/19 Status: Ordered Tobradex 0.3%-0.1% ophthalmic ointment 0.5 in, OPTH, HS, PRN PRN Other (see comment), Instill in eye for FBS, 0 Refill(s) Start Date: 11/07/19 Status: Ordered Vigamox 0.5% ophthalmic solution 1 drop(s), Eye-Right, [id number], 0 Refill(s), 12/07/19 Start Date: 11/07/19 Stop Date: 12/07/19 Status: Ordered Vitamin B12 0 Refill(s) Start [...] Choroidal nevus, 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 Yeh Procedures Procedure Date Related Diagnosis Body Site Status Phacoemulsification with IOL (Right) 1 11/07/19 Completed 1auto-populated from documented surgical case Social History Social History Type Response Smoking Status Former smoker, quit more than 30 days ago entered on: 05/06/19 Sex Medical Equipment Implanted Date:11/07/19Target Site:Unknown Description Quantity MRI Company Model INTRAOCULAR LENS IOL 1 KAMRYN Unkn own SHARONDA:No Information Assigning Authority: FDA
--- OUTSIDE RECORDS SUMMARY | 2023-05-10 11:33 | XMS_ITS | Continuity of Care Document ---
Author Name Unknown Organization [facility] Address [address] [place] [phone] Care Team Providers Care Factory Laborer Name Role Phone Ana Amanda Primary Care Physician Unavailab le Encounter [facility] Date(s): 12/06/19 - 12/06/19 [facility] [address], [place] [address] Encounter Diagnosis Pseudophakia of left eye(Discharge Diagnosis) - 12/06/19 Discharge Disposition: Home Attending Physician: Niko Yeh MD Admitting Physician: Niko Yeh MD Allergies, Adverse Reactions, Alerts No Known Medication Allergies Assessment and Plan Future Appointments Functional Status 12/06/19 Recent Travel History No recent travel Family Member Travel History No recent t ravel COVID-19 Screening None Medications acetaminophen 325 mg [...] acetate 1% ophthalmic suspension 1 drop(s), Eye-Left, [id number], 0 Refill(s), 02/05/20 Start Date: 12/05/19 Stop Date: 02/05/20 Status: Ordered prednisoLONE acetate 1% ophthalmic suspension 1 drop(s), Eye-Right, Daily, 0 Refill(s), 01/07/20 Start Date: 11/07/19 Stop Date: 01/07/20 Status: Ordered Red Yeast Rice 1,200 mg, Oral, Daily, 0 Refill(s) Start Date: 05/06/19 Status: Ordered Tobradex 0.3%-0.1% ophthalmic ointment 0.5 in, OPTH, HS, PRN PRN Other (see comment), Instill in eye for FBS, 0 Refill(s) Start Date: 11/07/19 Status: Ordered Vigamox 0.5% ophthalmic solution 1 drop(s), Eye-Left, [id number], 0 Refill(s), 01/05/20 Start Date: 12/05/19 Stop Date: 01/05/20 Status: Ordered Vitamin B12 0 Refill(s) Start [...]
--- OUTSIDE RECORDS SUMMARY | 2023-05-10 11:33 | XMS_ITS | Continuity of Care Document ---
Author Name Unknown Organization [facility] Address Unknown Care Team Providers Care Historical Guide Name Role Phone Amanda Perez Primary Care Physician Unavailab le Encounter [facility] Date(s): 12/05/19 - 12/05/19 [facility] [address] [place] [place] [address] Encounter Diagnosis Cortical age-related cataract of both eyes(Discharge Diagnosis) - 12/05/19 Discharge Disposition: Home or Self Care Attending Physician: Niko Burns MD Admitting Physician: Niko Burns MD Allergies, Adverse Reactions, Alerts No Known Medication Allergies Assessment and Plan Future Appointments Functional Status 12/05/19 Recent Travel History No recent travel Family [...] acetate 1% ophthalmic suspension 1 drop(s), Eye-Left, [id number], 0 Refill(s), 02/05/20 Start Date: 12/05/19 Stop [...] Vigamox 0.5% ophthalmic solution 1 drop(s), Eye-Left, [id number], 0 Refill(s), 01/05/20 Start Date: 12/05/19 Stop [...] YRS AGO 3PSPH OS 12/05/2019 - Dr. Burns 4PSPH OD 11/07/2019 - Dr. Burns Procedures Procedure Date Related Diagnosis Body Site Status Phacoemulsification with IOL (Left) 1 12/05/19 Completed Phacoemulsification with IOL (Right) 2 11/07/19 Completed 1auto-populated from documented surgical case 2auto-populated from documented surgical case Vital Signs Most recent to oldest [Reference Range]: 1 2 Temperature Temporal [36.3-37.8 DegC] 36 .7 DegC (12/05/19 1:05 PM) Heart Rate Monitored [60-100 bpm] 56 bpm *LOW* (12/05/19 2:45 PM) 57 bpm *LOW* (12/05/19 2:22 PM) Heart Rate Monitored 55 bpm bpm (12/05/19 2:10 PM) Respiratory Rate [14-20 br/min] 20 br/mi n (12/05/19 2:45 PM) 16 br/min (12/05/19 2:22 PM) Respiratory Rate 0 br/min br/min (12/05/19 2:10 PM) Blood Pressure [90-140/60-90 mmHg] 126/8 3mmHg (12/05/19 2:45 PM) 129/83mmHg (12/05/19 2:22 PM) Blood Pressure 119 mmHg mmHg (12/05/19 2:10 PM) SpO2 [92-100 %] 99 % (12/05/19 2:45 PM) 98 % (12/05/19 2:22 PM) SpO2 100 % % (12/05/19 2:10 PM) Height 172.000 cm (12/05/19 1:05 PM) Height/Length Dosing 172.000 cm (12/05/19 1:05 PM) Weight 78.000 kg (12/05/19 1:05 PM) Weight Dosing 78.000 kg (12/05/19 1:05 PM) Body Mass Index 26.370 kg/m2 (12/05/19 1:05 PM) Social History Social History Type Response Smoking Status Former smoker, quit more than 30 days ago entered on: 05/06/19 Sex Medical Equipment Implanted Date:12/05/19Target Site:Unknown Description Quantity MRI [employer] Model INTRAOCULAR LENS IOL 1 KAMRYN Unkn own SHARONDA:No Information Assigning Authority: FDA Implanted Date:11/07/19Target Site:Unknown Description Quantity MRI Company Model INTRAOCULAR LENS IOL 1 KAMRYN Unkn own SHARONDA:No Information Assigning Authority: [facility] Hospital Discharge Instructions Patient Education 12/05/2019 14:24:43 CATARACT POST -OP (NIKO BURNS) 10_18 (RAMSES LEONARD) NIKO BURNS OPHTHALMOLOGY FIRST DAY POST-SURGERY INSTRUCTIONS: EYE MEDICATIONS: VIGAMOX DROPS (smaller bottle with metz top) PREDNISOLONE DROPS (larger bottle with pink or white top) PLACE 1 DROP OF EACH MEDICATION IN OPERATIVE EYE EVERY 2 HOURS UNTIL BEDTIME. RESTART DROPS UPON WAKING THE NEXT MORNING AND CONTINUE UNTIL SEEN BY DR. BURNS. -wash hands well before touching eye -shake bottles before instilling drops. -instill the two different drops 5 minutes apart -keep eye closed for 1 minute after instilling drop TOBRADEX OINTMENT (pink tube) PLACE 1/2 STRIP OF OINTMENT IN OPERATIVE EYE AT BEDTIME. (Ointment can also be instilled anytime the eye feels scratchy) EYE SHIELD (without pad) TAPE SECURELY IN PLACE OVER OPERATIVE EYE AT BEDTIME SO YOU DO NOT COMPRESS EYE WHILE SLEEPING KEEP YOUR EYE COVERED AT ALL TIMES WITH GLASSES OR EYE SHIELD AVOID TAP WATER IN THE OPERATIVE EYE DO NOT RUB THE OPERATIVE EYE EYE STREAM (BLUE CAP) CAN BE USED IN BETWEEN EYE DROPS IF EYE FEELS DRY OR SCRATCHY BRING YOUR POST-OPERATIVE KIT TO ALL APPOINTMENTS IF YOU EXPERIENCE UNDUE PAIN, CALL DR. BURNS DIRECTLY AT HOME ([phone]); IF NO ANSWER CALL HIS CELL ([phone]) THE FOLLOWING IS NORMAL FOR THE FIRST DAY: Blurred, Dim, Double Vision Light flashes, shadows Scratchiness (use ointment) Blood colored tears
--- OUTSIDE RECORDS SUMMARY | 2023-05-10 11:33 | XMS_ITS | Continuity of Care Document ---
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-related cataract of both eyes(Discharge Diagnosis) - 11/07/19 Discharge Disposition: Home or Self Care Attending Physician: Niko Burns MD Admitting Physician: Niko Burns MD Allergies, Adverse Reactions, Alerts No Known Medication Allergies Assessment and Plan Future Appointments Functional Status 11/07/19 History of Fall in Last 3 Months [place] N o Recent Travel History No recent travel Family Member Travel History No recent t ravel COVID-19 Screening None Medications acetaminophen 325 mg oral tablet 325 mg = 1 tab(s), Oral, q4hr, PRN PRN Pain, 0 Refill(s) Start Date: 11/07/19 Status: Ordered niacinamide 0 Refill(s) Start Date: 05/06/19 Status: Ordered prednisoLONE acetate 1% ophthalmic suspension 1 drop(s), Eye-Right, [id number], 0 Refill(s), 01/07/20 Start Date: 11/07/19 Stop Date: 01/07/20 Status: Ordered Red Yeast Rice 1,200 mg, Oral, Daily, 0 Refill(s) Start Date: 05/06/19 Status: Ordered Tobradex 0.3%-0.1% ophthalmic ointment 0.5 in, OPTH, HS, PRN PRN Other (see comment), Instill in eye for FBS, 0 Refill(s) Start Date: 11/07/19 Status: Ordered Vigamox 0.5% ophthalmic solution 1 drop(s), Eye-Right, [id number], 0 Refill(s), 12/07/19 Start Date: 11/07/19 Stop [...] YRS AGO 3PSPH OD 11/07/2019 - Dr. Burns Procedures Procedure Date Related Diagnosis Body Site Status Phacoemulsification with IOL (Right) 1 11/07/19 Completed 1auto-populated from documented surgical case Vital Signs Most recent to oldest [Reference Range]: 1 2 3 Temperature Temporal [36.3-37.8 DegC] 36.7 DegC (11/07/19 11:35 AM) Peripheral Pulse Rate [60-100 bpm] 59 bpm *LOW* (11/07/19 1:50 PM) Heart Rate Monitored 60 bpm bpm (11/07/19 1:35 PM) 64 bpm bpm (11/07/19 1:30 PM) 66 bpm bpm (11/07/19 1:25 PM) Respiratory Rate 0 br/min br/min (11/07/19 1:35 PM) 0 br/min br/min (11/07/19 1:30 PM) 0 br/min br/min (11/07/19 1:25 PM) Blood Pressure [90-140/60-90 mmHg] 135/82mmHg (11/07/19 1:50 PM) Blood Pressure 134 mmHg mmHg (11/07/19 1:36 PM) 158 mmHg mmHg (11/07/19 1:30 PM) SpO2 [92-100 %] 97 % (11/07/19 1:50 PM) SpO2 100 % % (11/07/19 1:35 PM) 100 % % (11/07/19 1:30 PM) Height 172.000 cm (11/07/19 11:35 AM) Height/Length Dosing 172.000 cm (11/07/19 11:35 AM) Weight 78.020 kg (11/07/19 11:35 AM) Weight Dosing 78.020 kg (11/07/19 11:35 AM) Body Mass Index 26.370 kg/m2 (11/07/19 11:35 AM) Social History Social History Type Response Smoking Status Former smoker, quit more than 30 days ago entered on: 05/06/19 Sex Medical Equipment Implanted Date:11/07/19Target Site:Unknown Description Quantity MRI Company Model INTRAOCULAR LENS IOL 1 KAMRYN Unkn own SHARONDA:No Information Assigning Authority: [facility] Hospital Discharge Instructions Patient Education 11/07/2019 13:47:31 CATARACT POST -OP (NIKO BURNS) 10_18 (RAMSES [...] PAIN, CALL DR. BURNS DIRECTLY AT HOME ([phone]); IF NO ANSWER CALL HIS CELL ([phone]) THE FOLLOWING IS NORMAL FOR THE FIRST DAY: Blurred, Dim, Double Vision Light flashes, shadows Scratchiness (use ointment) Blood colored tears
--- OUTSIDE RECORDS SUMMARY | 2023-05-10 11:33 | XMS_ITS | Continuity of Care Document ---
Author Name Unknown Organization [facility] Address [address] [place] [phone] Care Team Providers Care General Farm Hand Name Role Phone Santinoforrest Amanda Primary Care Physician Unavailab le Encounter [facility] Date(s): 11/19/19 - 11/19/19 [facility] [address] [place], [place] [address] Encounter Diagnosis Pseudophakia of right eye(Discharge Diagnosis) - 11/19/19 Discharge Disposition: Home or Self Care Attending Physician: Niko Yeh MD Admitting Physician: Niko Yeh MD Allergies, Adverse Reactions, Alerts No Known Medication Allergies Assessment and Plan Future Appointments Functional Status 11/19/19 Recent Travel History No recent travel Family Member Travel History No recent t ravel COVID-19 Screening None Medications acetaminophen 325 mg oral tablet 325 mg = 1 tab(s), Oral, q4hr, PRN PRN Pain, 0 Refill(s) Start Date: 11/07/19 Status: Ordered niacinamide 0 Refill(s) Start Date: 05/06/19 Status: Ordered prednisoLONE acetate 1% ophthalmic suspension 1 drop(s), Eye-Right, [id number], 0 Refill(s), 01/07/20 Start Date: 11/07/19 Stop [...] eye(Confirmed) Active Pseudophakia of left eye(Confirmed) 3 11/07/19 Active Pseudophakia of right eye(Confirmed) Active 1hx FLOMAX 2HX RETROBULBAR [...]
--- OUTSIDE RECORDS SUMMARY | 2023-05-10 11:33 | XMS_ITS | Continuity of Care Document ---
Author Name Unknown Organization [facility] Address [address] [place] [phone] Care Team Providers Care It Generalist Name Role Phone Ana Amanda Primary Care Physician Unavailab le Encounter [facility] Date(s): 12/20/19 - 12/20/19 [facility] [address] [place], [place] [address] Encounter Diagnosis Pseudophakia of left eye(Discharge Diagnosis) - 12/20/19 Discharge Disposition: Home Attending Physician: Niko Yeh MD Admitting Physician: Niko Yeh MD Allergies, Adverse Reactions, Alerts No Known Medication Allergies Assessment and Plan Future Appointments Functional Status 12/20/19 Recent Travel History No recent travel COVID-19 [...] acetate 1% ophthalmic suspension 1 drop(s), Eye-Left, [id number], 0 Refill(s), 02/05/20 Start Date: 12/05/19 Stop [...] Vigamox 0.5% ophthalmic solution 1 drop(s), Eye-Left, [id number], 0 Refill(s), 01/05/20 Start Date: 12/05/19 Stop [...]
[2023-05-10 11:38] LABS: Bilirubin Negative (Negative); Blood Trace-intact (Negative); Clarity Sl Cloudy (Clear); Glucose Negative (Negative); Ketones Negative (Negative); Leukocyte Esterase Moderate (Negative); Nitrite Negative (Negative); Specific Gravity 1.015 (1.005-1.025); Urobilinogen 0.2 mg/dL (Up to 0.2)
--- NOTE | 2023-05-10 11:44 | W.ED.GENAD ---
Discharge Plan Disposition Patient Disposition: Home Condition: Stable Discharge Details Clinical Impression: Acute UTI Primary Care Provider: Amanda Perez ED Provider: Eunice De La Garza Home Meds and New Rx's Prescriptions: New cephalexin 500 mg capsule 500 mg PO QID 10 Days Qty: 40 0RF No Action acetaminophen 500 mg capsule 500 mg PO Q6H PRN gabapentin 100 mg capsule 100 mg PO DAILY gabapentin 300 mg capsule 300 mg PO QHS ascorbic acid (vitamin C) 1,000 mg capsule 1 g PO DAILY cholecalciferol (vitamin D3) 25 mcg (1,000 unit) capsule 25 mcg PO DAILY bisacodyl [Dulcolax (bisacodyl)] 5 mg Tablet,Delayed Release (Dr/Ec) 5 mg PO PRN PRN Discharge Instructions Instructions: Urinary Tract Infection in Men (ED) Additional Instructions: Take antibiotic as prescribed. Recommend using straight catheterization for next several days. Follow-up with primary care to ensure resolution of infection. Referrals: Amanda Perez [Primary Care Provider] - 3 days Discharge Data Discharge Physician: Eunice De La Garza Medical Decision Making 77-year-old male presents for evaluation of dysuria and increased urinary frequency. UA consistent with infection. Prior microscopy was reviewed. 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 Will be started on Keflex. Post residual bladder scan greater than 250. Patient does have the ability to straight cath at home. Using shared decision making we agreed that he would straight cath at home for neck several days to ensure complete emptying of his bladder. I have recommended close follow-up with primary care to ensure that his infection has resolved. He will return with any worsening symptoms. HPI General Date/Time Provider Initiated Documentation: 05/10/23 11:15. HPI Narrative: 77-year-old male presents for evaluation of increased urinary frequency and dysuria. Patient states that he has history of frequent urinary tract infections. He occasionally has issues with urinary retention and straight caths at home. He has not had a straight cath in some time. He has had difficulty with urination over the last several days. Denies any fevers or chills. No nausea or vomiting. He does feel like he is slightly constipated but was able to have a bowel movement today. Denies any back pain. No recent antibiotic use. Denies any testicular pain. No penile discharge. No concerns of STD. Related Data Home Medications Medication Instructions Recorded Confirmed bisacodyl 5 mg tablet,delayed 5 mg PO PRN PRN 01/25/19 01/16/23 release (Dulcolax (bisacodyl)) ascorbic acid (vitamin C) 1,000 mg 1 g PO DAILY 01/03/23 01/16/23 capsule cholecalciferol (vitamin D3) 25 25 mcg PO DAILY 01/03/23 01/16/23 mcg (1,000 unit) capsule gabapentin 100 mg capsule 100 mg PO DAILY 01/03/23 01/16/23 gabapentin 300 mg capsule 300 mg PO QHS 01/03/23 01/16/23 acetaminophen 500 mg capsule 500 mg PO Q6H PRN 01/12/23 01/16/23 cephalexin 500 mg capsule 500 mg PO QID 10 days #40 caps 05/10/23 Previous Rx's Medication Instructions Recorded cephalexin 500 mg capsule 500 mg PO QID 10 days #40 caps 05/10/23 Allergies Allergy/AdvReac Type Severity Reaction Status Date / Time No Known Allergies Allergy Unverified 01/12/23 09:54 General Stated Complaint: Urinary WARREN: 4 Review of Systems Narrative: Remainder review of systems otherwise negative so present on the HPI x 5. 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) H/O total hip arthroplasty (~10/13/22) History of colonoscopy (~12/2019) 2013-@ [facility], tublar adenomas x2 2019-@ [facility], normal Social History Smoking/Tobacco Use Status: Never Smoking risk assessment performed?: Yes Alcohol Intake: current Alcohol Intake frequency: 0-2 drinks per day Drug use: Never Substance use type: does not use Do you feel safe at home: Yes Do you feel safe in your relationship?: Yes Exam Narrative Exam Narrative: General: non-toxic, no respiratory distress, comfortable HEENT: normocephalic, atraumatic, lids and lashes normal, PERRL, EOMI, anicteric sclera, no conjunctival injection, moist oral mucosa Card: regular rate and rhythm, S1S2, no murmurs, rubs, or gallops Lungs: good air entry, clear to auscultation bilaterally. no wheezes, rales, rhonchi, or retractions Abd: soft, non-tender, non-distended, normal bowel sounds, no rebound or guarding, no peritoneal signs, no CVAT Musculoskeletal: full range of motion of arms and legs, no tenderness to palpation. no clubbing, cyanosis, or edema Neurologic: appropriate for age, strength normal Psych: alert and oriented Skin: no petechiae, no lesions, warm and dry Course Vital Signs Vital signs: Vital Signs Temperature 36.7 C 05/10/23 11:12 Pulse 74 05/10/23 11:12 Respiratory Rate 18 05/10/23 11:12 Blood Pressure 144/78 H 05/10/23 11:12 Temperature 36.7 C 05/10/23 11:12 Temperature Source Oral 05/10/23 11:12 Pulse 74 05/10/23 11:12 Respiratory Rate 18 05/10/23 11:12 Respiratory Effort Normal, Non-Labored 05/10/23 11:19 Blood Pressure 144/78 H 05/10/23 11:12 Lab/Test Results Lab/Test Results: Laboratory Tests Range/Units 05/10/23 11:20 Urine Color (Yellow) Yellow Urine Clarity (Clear) Sl Cloudy Urine pH (5-8) 6.0 Ur Specific [place] (1.005-1.025) 1.015 Urine Protein (Negative) mg/dL Negative Urine Ketones (Negative) mg/dL Negative Urine Blood (Negative) Trace-intact H Urine Nitrite (Negative) Negative Urine Bilirubin (Negative) Negative Urine Urobilinogen (Up to 0.2) mg/dL 0.2 Ur Leukocyte Esterase (Negative) Moderate H Urine Glucose (Negative) mg/dL Negative
[2023-05-10 11:46] LABS: Bacteria Moderate HPF (Negative); C & S Indicated? Yes; Casts Negative LPF (Negative); Crystals Negative HPF (Negative); Epithelial Cells Few HPF (Negative); Mucus Negative (Negative); RBC 0-2 HPF (0-2); WBC 20-50 HPF (0-5)
[2023-05-10] MEDS: Cephalexin 500 MG CAP PO (12:07)
[2023-05-10 12:15] VITALS: BP 136/72; PULSE 78; RESP 16; O2SAT 98
== END 2023-05-10 12:17 | disposition home or self-care (01) ==
PROVIDERS: Emergency Provider Emergency Medicine Emergency Medical Services; PCP Family Medicine
DX: N39.0 Urinary tract infection, site not specified; I10 Essential (primary) hypertension; E78.5 Hyperlipidemia, unspecified; Z79.899 Other long term (current) drug therapy
CPT/HCPCS: 87077; 99283; 81003; 81015; 87086; 87186; 99284